=== PATIENT | female | born 1985 | race African-American/Black ===

== ENCOUNTER 2019-05-06 22:57 | Emergency (ER) | payer OTHER ==
[2019-05-06 23:06] VITALS: TEMP 98.6; BMI 29.9
--- NOTE | 2019-05-07 00:16 | PDOC ---
History of Present Illness - General Chief Complaint: Pain Stated Complaint: PELVIC PAIN Time Seen by Provider: 05/07/19 00:16 History Source: Patient Exam Limitations: No Limitations - History of Present Illness Initial Comments: 05/07/19 00:16 HPI: 33yo F PMH PCOS presenting with lower abdominal pain and questionably positive home test. Patient endorses mild nausea and vomiting in the mornings, none at present, normal food and water intake throughout the afternoon and evening. Reports her lower abdominal pain "uterine pain" is similar to pains she normal has from her PCOS, and is accompanied by breast tenderness. She reports a miscarriage January 26, 2019 (@3 months) and no menstrual periods since that time. Denies history of fibroids or polyps. Several miscarriages / SABs in the past. No abnormal PAP smears, currently between AUDIO RECORDING ENGINEER providers. Denies fevers, chills, nausea, vomiting, diarrhea, numbness, tenderness, weakness, bloody or dark stools, dysuria, loss of appetite, prior abdominal surgeries. All: NKDA Meds: Per chart PMH: As above PSH: Denies SHx: Denies toxic habits Past History - Travel Traveled outside of the country in the last 30 days: No Close contact w/someone who was outside of country & ill: No - Past Medical History Allergies/Adverse Reactions: Allergies Allergy/AdvReac Type Severity Reaction Status Date / Time No Known Allergies Allergy Verified 05/06/19 23:06 Home Medications: Ambulatory Orders Ondansetron [Zofran Odt -] 4 mg SL TID #21 od.tablet 05/15/14 COPD: No Disorders: Yes (pcos) - Reproductive History Cervical CA: No Dysfunctional Uterine Bleeding: No Ectopic : No Endometrial CA: No Polycystic Ovaries: Yes - Psycho Social/Smoking Cessation Hx Smoking Status: No Smoking History: Never smoked Have you smoked in the past 12 months: No Number of Cigarettes Smoked Daily: 0 Information on smoking cessation initiated: No Hx Alcohol Use: No Drug/Substance Use Hx: No Review of Systems - Review of Systems Able to Perform ROS?: Yes Is the patient limited Slovak proficient: Yes Constitutional: No: Chills, Diaphoresis, Fever HEENTM: No: Nose Congestion, Throat Pain Respiratory: No: Cough, Shortness of Breath Cardiac (ROS): No: Chest Pain, Edema, Irregular Heart Rate, Lightheadedness, Palpitations, Syncope, Chest Tightness ABD/GI: Yes: See HPI, Nausea, Vomiting. No: Constipated, Diarrhea : No: Burning, Dysuria, Frequency Musculoskeletal: No: Muscle Pain, Muscle Weakness, Neck Pain Integumentary: No: Bruising, Pruritus, Rash Neurological: No: Headache, Numbness, Tingling, Weakness Psychiatric: No: Stressors, Change in Appetite Endocrine: No: Increased Thirst, Increased Urine Hematologic/Lymphatic: No: Anemia, Blood Clots, Easy Bleeding All Other Systems: Reviewed and Negative *Physical Exam - Vital Signs Last Vital Signs Temp Pulse Resp BP Pulse Ox 98.6 F 78 17 129/76 100 05/06/19 23:04 05/06/19 23:04 05/06/19 23:04 05/06/19 23:04 05/06/19 23:04 - Physical Exam 05/07/19 02:44 Vitals reviewed, AFVSS GEN: Well appearing, appears stated age, NAD, comfortable. AAOx3. HEENT: NCAT, EOMI, PERRL. Sclera anicteric, noninjected. No facial asymmetry. Moist mucous membranes. Normal voice. Trachea midline. CV: RRR, S1/S2, no murmurs / rubs / gallops appreciated. LUNG: CTAB, normal work of breathing. No wheezes, rales, rhonchi. No cough. Speaking full sentences. GI: Soft, NTND, +BS, no guarding, no rebound. No masses. Neg CVAT b/l. EXTREMITIES: 2+ distal pulses. No LE edema. No obvious deformities of all extremities. SKIN: Warm, dry, no rashes appreciated, non-jaundiced. PSYCH: Normal mood and affect. Cooperative and appropriate. NEURO: CN grossly intact. Moving all extremities well. Normal strength and sensation grossly. SSE: Normal external genitalia, normal rugae, physiologic white discharge, no blood, normal cervix with closed os BME: Non-tender cervix, no adnexal fullness or tenderness ED Treatment Course - LABORATORY CBC & Chemistry Diagram: 05/07/19 03:02 05/07/19 03:01 Medical Decision Making - Medical Decision Making 05/07/19 01:00 33yo F PMH PCOS presenting with lower abdominal pain and questionably positive home test. History notable for PCOS, subacute abdominal discomfort. Exam notable for stable vitals, non-tender abdomen, normal pelvic exam. DDX: , ectopic, torsion, appendicitis, UTI, PID, fibroids. - TVUS - UPreg, UA, UCx 05/07/19 01:44 - Positive , IUP on US on my read, official pending - CBC, CMP, Beta Quant 05/07/19 02:41 - Official US read with small subchorionic bleed - T&S added 05/07/19 03:04 - Labs drawn, pending - Patient is pain free, hungry, asking to leave - Reports her blood type is O Positive - Cell phone number given for call back pending labs [phone] Discharge - Discharge Information Problems reviewed: Yes Clinical Impression/Diagnosis: Qualifiers: Weeks of gestation: less than 8 weeks Qualified Code(s): Z3A.01 - Less than 8 weeks gestation of Subchorionic hematoma in first trimester Qualifiers: Fetus number: single or unspecified fetus Qualified Code(s): O41.8X10 - Other specified disorders of amniotic fluid and membranes, first trimester, not applicable or unspecified Condition: Improved Disposition: HOME - Admission No - Follow up/Referral Referrals: Sonia Huffman MD [Non Staff, Medical] - Citlalli Whipple MD [Non Staff, Medical] - Olimpia Spaulding MD [Staff Physician] - - Patient Discharge Instructions Patient Printed Discharge Instructions: DI for Abdominal Pain -- Early Additional Instructions: You were seen and evaluated for abdominal pain and . You were found to be 7 weeks . Please follow up with OBGYN regarding your care as soon as possible. A referral has been provided. Return to the ED for any new or concerning symptoms. - Post Discharge Activity
--- NOTE | 2019-05-07 00:17 | PDOC ---
Attending Attestation - Resident Resident Name: Neymar Sepulveda - ED Attending Attestation I have performed the following: I have examined & evaluated the patient, The case was reviewed & discussed with the resident, I agree w/resident's findings & plan - HPI HPI: 05/07/19 03:25 see resident hpi - Physicial Exam PE: 05/07/19 03:25 see resident exam - Medical Decision Making 05/07/19 03:25 33-year-old female with intermittent pelvic cramping and questionable Pelvic ultrasound shows an approximate 7-week live IUP with heart rate in the 150s Patient is feeling much better, she is pain-free and hungry and would like to go home She did allow blood draw but prefers to go home prior to results, patient left a cell phone number to be contacted should there be any concerning results She will follow-up outpatient with her CARE MANAGER as well
[2019-05-07 01:04] LABS: HCG,QUALITATIVE URINE Positive; PH,URINE 5.5 (5.0-8.0); URINE APPEARANCE CLEAR; URINE BILIRUBIN NEGATIVE (NEGATIVE); URINE COLOR YELLOW; URINE GLUCOSE (UA) NEGATIVE (NEGATIVE); URINE KETONE TRACE (NEGATIVE); URINE LEUK ESTERASE NEGATIVE (NEGATIVE); URINE NITRITE NEGATIVE (NEGATIVE); URINE PROTEIN NEGATIVE (NEGATIVE); URINE UROBILINOGEN 0.2 mg/dL (0.2-1.0)
[2019-05-07 03:13] LABS: BASO % 0.3 % (0-2.0); EOS % 0.5 % (0-4.5); HEMATOCRIT 34.8 % (32.4-45.2); HEMOGLOBIN 11.3 GM/dL (10.7-15.3); LYMPH % 20.3 % (8-40); MCHC 32.4 g/dl (32.0-36.0); MEAN CELL VOLUME 80.2 fl (80-96); MEAN PLT VOLUME 7.9 fl (7.5-11.1); MONO % 5.5 % (3.8-10.2); NEUT % 73.4 % (42.8-82.8); PLATELET COUNT 275 K/MM3 (134-434); RBC 4.34 M/mm3 (3.60-5.2); RDW 14.8 % (11.6-15.6); WHITE BLOOD COUNT 11.4 K/mm3 (4.0-10.0)
[2019-05-07 04:51] VITALS: BP 118/72; PULSE 70
[2019-05-07 04:54] LABS: ALBUMIN 3.7 g/dl (3.4-5.0); BILIRUBIN,TOTAL 0.1 mg/dL (0.2-1); BLOOD UREA NITROGEN 10.3 mg/dL (7-18); CALCIUM 8.7 mg/dL (8.5-10.1); CREATININE 0.6 mg/dL (0.55-1.3); POTASSIUM 3.8 mmol/L (3.5-5.1); TOT PROT 7.4 g/dl (6.4-8.2)
== END 2019-05-07 03:10 | disposition home or self-care (01) ==
LOC: JER 22:57
DX: O41.8X10 Other specified disorders of amniotic fluid and membranes, first trimester, not applicable or unspecified (principal); Z3A.01 Less than 8 weeks gestation of pregnancy; E28.2 Polycystic ovarian syndrome
CPT/HCPCS: 36415; 76830-TC; 80053; 81003; 84702; 84703; 85025; 86850; 86900; 86901; 87086; 99284-25

== ENCOUNTER 2019-05-24 21:37 | Emergency (ER) | payer OTHER ==
[2019-05-24] MEDS ORDERED: SODIUM CHLORIDE 0.9% 500 ML INFUS.BAG IV ONE (22:42)
[2019-05-24 22:45] VITALS: BP 140/86; PULSE 81; TEMP 98.8; BMI 31.4
[2019-05-24] MEDS ORDERED: ACETAMINOPHEN 1000 MG/100 ML VIAL (NON FORMULARY) IVPB ONE (22:57)
[2019-05-24 23:08] LABS: URINE APPEARANCE CLEAR; URINE BILIRUBIN NEGATIVE (NEGATIVE); URINE COLOR YELLOW; URINE GLUCOSE (UA) NEGATIVE (NEGATIVE); URINE KETONE 3+ (NEGATIVE); URINE LEUK ESTERASE NEGATIVE (NEGATIVE); URINE NITRITE NEGATIVE (NEGATIVE); URINE PROTEIN NEGATIVE (NEGATIVE); URINE UROBILINOGEN 0.2 mg/dL (0.2-1.0)
[2019-05-24] MEDS ORDERED: LACTATED RINGERS SOLUTION 1000 ML INFUS.BAG IV ONE (23:10)
[2019-05-24] MEDS ORDERED: ACETAMINOPHEN INJECTION 100 ML IVPB ONE (23:11)
[2019-05-25] MEDS ORDERED: ONDANSETRON *ODT* 4 MG TABLET SL ONE (01:04)
[2019-05-25] MEDS ORDERED: ONDANSETRON *ODT* 4 MG TABLET ONE (01:05)
--- NOTE | 2019-05-25 01:10 | PDOC ---
Documentation entered by Emelia North SCRIBE, acting as scribe for Katarzyna Muse MD. Katarzyna Muse MD: This documentation has been prepared by the Can frazier Nirvannie, SCRIBE, under my direction and personally reviewed by me in its entirety. I confirm that the documentation accurately reflects all work, treatment, procedures, and medical decision making performed by me. History of Present Illness - General Chief Complaint: Nausea/Vomiting Stated Complaint: VOMITING/WEAKNESS/HEADACHE Time Seen by Provider: 05/24/19 22:43 History Source: Patient Exam Limitations: No Limitations - History of Present Illness Initial Comments: 05/24/19 23:09 The patient is a 33 year old 19 weeks female A4, with a significant past medical history of PCOS and 3 recent ER visits for hyperemesis, who presents to the emergency department with persistent nausea with bilious, nonbloody emesis, lightheadedness, and headache. As per patient, she has been unable to hold down PO intake thus she called her STENOTYPE MACHINE OPERATOR who advised her to report to the ED for IV hydration. She denies any fevers, chills, cough, chest pain, or shortness of breath. She denies any recent sick contacts. Allergies: NKDA STENOTYPE MACHINE OPERATOR: Dr. Spaulding Past History - Past Medical History Allergies/Adverse Reactions: Allergies Allergy/AdvReac Type Severity Reaction Status Date / Time No Known Allergies Allergy Verified 05/24/19 22:45 Home Medications: Ambulatory Orders Ondansetron [Zofran Odt -] 4 mg SL TID #21 od.tablet 05/15/14 Ondansetron HCl [Zofran] 4 mg PO TID PRN #30 tablet 05/15/19 Doxylamine Succinate/Vit B6 [Dicleginancy Dr 10-10 mg Tablet] 1 each PO ASDIR PRN #20 tablet. 05/19/19 Nitrofurantoin Macrocrystal [Nitrofurantoin] 100 mg PO QID 5 Days #20 capsule 05/19/19 Metoclopramide HCl [Reglan -] 10 mg PO TID #30 tablet 05/24/19 COPD: No Disorders: Yes (pcos) - Reproductive History Cervical CA: No Dysfunctional Uterine Bleeding: No Ectopic : No Endometrial CA: No Polycystic Ovaries: Yes - Immunization History Immunization Up to Date: Yes - Psycho Social/Smoking Cessation Hx Smoking Status: No Smoking History: Never smoked Have you smoked in the past 12 months: No Number of Cigarettes Smoked Daily: 0 Information on smoking cessation initiated: No Hx Alcohol Use: No Drug/Substance Use Hx: No Review of Systems - Review of Systems Able to Perform ROS?: Yes Comments:: 05/24/19 23:09 GENERAL/CONSTITUTIONAL: No fever or chills. No weakness. HEAD, EYES, EARS, NOSE AND THROAT: No change in vision. No ear pain or discharge. No sore throat. CARDIOVASCULAR: No chest pain or shortness of breath. RESPIRATORY: No cough, wheezing, or hemoptysis. GASTROINTESTINAL:+nausea, +vomiting. No diarrhea or constipation. GENITOURINARY: No dysuria, frequency, or change in urination. MUSCULOSKELETAL: No joint or muscle swelling or pain. No neck or back pain. SKIN: No rash NEUROLOGIC: +headache. +lightheaded. No vertigo, loss of consciousness, or change in strength/sensation. ENDOCRINE: No increased thirst. No abnormal weight change. HEMATOLOGIC/LYMPHATIC: No anemia, easy bleeding, or history of blood clots. ALLERGIC/IMMUNOLOGIC: No hives or skin allergy. All Other Systems: Reviewed and Negative *Physical Exam - Vital Signs Last Vital Signs Temp Pulse Resp BP Pulse Ox 98.8 F 81 16 140/86 99 05/24/19 22:42 05/24/19 22:42 05/24/19 22:42 05/24/19 22:42 05/24/19 22:42 - Physical Exam 05/24/19 23:09 GENERAL: Awake, alert, and fully oriented, in no acute distress HEAD: No signs of trauma NECK: Normal ROM, supple, no lymphadenopathy, JVD, or masses LUNGS: Breath sounds equal, clear to auscultation bilaterally. No wheezes, and no crackles HEART: +Tachycardic. Regular rhythm, no murmurs, rubs or gallops ABDOMEN: +Gravid. Soft, nontender, normoactive bowel sounds. No guarding, no rebound. No masses EXTREMITIES: Normal range of motion, no edema. No clubbing or cyanosis. No cords, erythema, or tenderness NEUROLOGICAL: Cranial nerves II through XII grossly intact. Normal speech. Ambulating with a steady gait. SKIN: Warm, Dry, normal turgor, no rashes or lesions noted. Medical Decision Making - Medical Decision Making 05/24/19 23:25 Pt tells me that she is 11 week; however, she is 19 weeks . She has had hyperemesis the past week and been to the ER 2x. Today she has N/V cant keep anything down. Pt will receive hydration with 2L and ofirmev and she will be sent home with reglan. Discharge - Discharge Information Problems reviewed: Yes Clinical Impression/Diagnosis: Hyperemesis Condition: Improved Disposition: HOME - Admission No - Additional Discharge Information Prescriptions: Metoclopramide HCl [Reglan -] 10 mg PO TID #30 tablet - Follow up/Referral - Patient Discharge Instructions Patient Printed Discharge Instructions: DI for Hyperemesis Gravidarum - Post Discharge Activity
== END 2019-05-25 01:15 | disposition home or self-care (01) ==
LOC: JER 21:37
DX: O21.0 Mild hyperemesis gravidarum (principal); Z3A.19 19 weeks gestation of pregnancy
CPT/HCPCS: 81003; 99283-25; J0131; Q0162

== ENCOUNTER 2019-10-11 11:44 | Emergency (ER) | payer OTHER ==
[2019-10-11 11:51] VITALS: BMI 29.9
[2019-10-11] MEDS ORDERED: SODIUM CHLORIDE 0.9% 500 ML INFUS.BAG IV ONE (13:15)
[2019-10-11] MEDS ORDERED: ONDANSETRON 4 MG/2 ML VIAL IVPUSH ONE (13:15)
[2019-10-11] MEDS ORDERED: ACETAMINOPHEN 1000 MG/100 ML VIAL (NON FORMULARY) IVPB ONE (13:15)
[2019-10-11] MEDS ORDERED: ACETAMINOPHEN INJECTION 100 ML IVPB ONE (13:21)
[2019-10-11 14:08] LABS: BASO % 0.2 % (0-2.0); EOS % 0.4 % (0-4.5); HEMOGLOBIN 9.4 GM/dL (10.7-15.3); LYMPH % 13.2 % (8-40); MCH 25.9 pg (25.7-33.7); MCHC 32.4 g/dl (32.0-36.0); MEAN PLT VOLUME 8.1 fl (7.5-11.1); MONO % 5.8 % (3.8-10.2); NEUT % 80.4 % (42.8-82.8); PLATELET COUNT 285 K/MM3 (134-434); RBC 3.63 M/mm3 (3.60-5.2); RDW 14.3 % (11.6-15.6); WHITE BLOOD COUNT 7.4 K/mm3 (4.0-10.0)
--- NOTE | 2019-10-11 14:23 | PDOC ---
History of Present Illness - General Chief Complaint: Lightheaded Stated Complaint: NAUSEA/VOMITING Time Seen by Provider: 10/11/19 11:59 History Source: Patient Past History - Medical History Allergies/Adverse Reactions: Allergies Allergy/AdvReac Type Severity Reaction Status Date / Time No Known Allergies Allergy Verified 10/11/19 11:51 Home Medications: Ambulatory Orders No122/Iron/Folic Acid [ Multi Tablet] 1 each PO DAILY 10/11/19 COPD: No Disorders: Yes (pcos) - Reproductive History Is Patient Now?: Yes (#): 2 Para: 1 Cervical CA: No Dysfunctional Uterine Bleeding: No Ectopic : No Endometrial CA: No Polycystic Ovaries: Yes Therapeutic (s) & number: No Spontaneous : 0 - Immunization History Immunization Up to Date: Yes - Psycho-Social/Smoking History Smoking Status: No Smoking History: Never smoked Have you smoked in the past 12 months: No Number of Cigarettes Smoked Daily: 0 *Physical Exam - Vital Signs Last Vital Signs Temp Pulse Resp BP Pulse Ox 98 F 113 H 18 113/66 100 10/11/19 11:47 10/11/19 11:47 10/11/19 11:47 10/11/19 11:47 10/11/19 11:47 ED Treatment Course - LABORATORY CBC & Chemistry Diagram: 10/11/19 13:39 10/11/19 13:55 - ADDITIONAL ORDERS Additional order review: Laboratory Results 10/11/19 13:27 POC Glucometer 67 10/11/19 10/11/19 13:39 13:27 RBC 3.63 MCV 80.0 MCHC 32.4 RDW 14.3 MPV 8.1 Neutrophils % 80.4 Lymphocytes % 13.2 Monocytes % 5.8 Eosinophils % 0.4 Basophils % 0.2 POC Glucometer 67 - Medications Given in the ED: ED Medications Discontinued Medications Generic Name Dose Route Start Last Admin Trade Name Freq PRN Reason Stop Dose Admin Acetaminophen 1,000 mg 10/11/19 13:15 10/11/19 13:48 Ofirmev Injection - IVPB 10/11/19 13:16 1,000 mg ONCE ONE Administration Ondansetron HCl 4 mg 10/11/19 13:15 10/11/19 13:48 Zofran Injection IVPUSH 10/11/19 13:16 4 mg ONCE ONE Administration Sodium Chloride 1,000 ml 10/11/19 13:15 10/11/19 13:48 Normal Saline - IV 10/11/19 13:16 1,000 ml ONCE ONE Administration Discharge - Discharge Information Problems reviewed: Yes Clinical Impression/Diagnosis: Hyperemesis gravidarum Condition: Stable - Admission No - Follow up/Referral - Patient Discharge Instructions - Post Discharge Activity
[2019-10-11 14:49] LABS: ALBUMIN 2.9 g/dl (3.4-5.0); BILIRUBIN,TOTAL 0.2 mg/dL (0.2-1); BLOOD UREA NITROGEN 10.4 mg/dL (7-18); CALCIUM 9.1 mg/dL (8.5-10.1); CREATININE 0.6 mg/dL (0.55-1.3); POTASSIUM 4.2 mmol/L (3.5-5.1); TOT PROT 6.6 g/dl (6.4-8.2)
[2019-10-11] MEDS ORDERED: SODIUM CHLORIDE 0.9% 1000 ML INFUS.BAG IV ONE (15:34)
--- NOTE | 2019-10-11 16:07 | PDOC ---
Documentation entered by Amelie Miranda SCRIBE, acting as scribe for Deon Franklin MD. Deon Franklin MD: This documentation has been prepared by the alhajiibRuben mae Ana, SCRIBE, under my direction and personally reviewed by me in its entirety. I confirm that the documentation accurately reflects all work, treatment, procedures, and medical decision making performed by me. Attending Attestation - Resident Resident Name: ConstantinoRinku - ED Attending Attestation I have performed the following: I have examined & evaluated the patient, The case was reviewed & discussed with the resident, I agree w/resident's findings & plan, Exceptions are as noted - HPI HPI: 10/11/19 12:04 Patient is a 33 year old female 29 weeks presents to the ED with 2 episodes of nausea vomiting yesterday Now with slight dizziness lightheadedness while ambulating ROS: A complete review of 10 out of 10 review of systems is taken and is negative apart from what is previously mentioned below and in the HPI. - Physicial Exam PE: 10/11/19 16:05 Vitals: Triage Vital signs reviewed General Appearance: No acute distress, well nourished well developed, Head: Atraumatic, Cardiac: Regular rate and rhythym, no murmurs, no rubs, no gallops, Lungs: Clear to auscultation bilateral, good air movement bilaterally, Abdomen: Soft, non distended, normal bowel sounds, non tender to palpation Extremities: Full range of motion to all extremities, no cyanosis, clubbing, or edema Skin: Warm and dry, no rashes or lesions, no rash, no petechiae Neuro: AOX3; cranial Nerves 2-12 grossly intact, strength intact to all extremities, sensation intact to all extremities, Psych: Normal mood, normal affect - Medical Decision Making 10/11/19 16:06 Well-appearing no apparent distress EKG demonstrates normal sinus rhythm no ST elevations or T wave inversions no evidence of WPW, Brugada, prolonged QT Laboratory analysis within normal limits patient feels better is now tolerating fluids by mouth History examination most consistent with slight hyperemesis and dehydration complicated by lightheadedness Low suspicion for cardiac near-syncope Findings, need for follow-up and strict return instructions discussed with patient. Discharge - Discharge Information Problems reviewed: Yes Clinical Impression/Diagnosis: Hyperemesis gravidarum Condition: Stable - Follow up/Referral - Patient Discharge Instructions - Post Discharge Activity
[2019-10-11 16:56] LABS: PH,URINE 6.5 (5.0-8.0); URINE APPEARANCE CLEAR; URINE BILIRUBIN NEGATIVE (NEGATIVE); URINE COLOR YELLOW; URINE GLUCOSE (UA) NEGATIVE (NEGATIVE); URINE KETONE 1+ (NEGATIVE); URINE LEUK ESTERASE NEGATIVE (NEGATIVE); URINE NITRITE NEGATIVE (NEGATIVE); URINE PROTEIN NEGATIVE (NEGATIVE)
[2019-10-11 17:07] VITALS: BP 109/67; PULSE 96; TEMP 98.3
--- NOTE | 2019-10-11 17:32 | PD.OB.PROG ---
Past Medical History - Primary Care Physician PCP:: Chicho Andrew Documenting Provider Type: Laborist - Admission Chief Complaint: Nausea, dehydration. History of Present Illness: 2nd , 29.4 wks. Enters via ED. N&V, dehydration, GERD, - Nursing Documentation Maternal Triage Index: Maternal Triage Index ( Priority 2, Urgent MFTI) Nursing Documentation Reviewed: Yes - Past Medical History CONSERVATION COORDINATOR: Denies/None Cardio/Vascular: Denies/None Pulmonary: Denies/None Gastrointestinal: Denies/None Hepatobiliary: Denies/None Renal/: Denies/None ...: 6 ...Para: 1 ...Term: 1 ...: 0 ...Spon : 2 ...Induced : 2 ...Living Children: 1 ...EDC by Kelli: 12/23/19 Heme/Onc: Denies/None Infectious Disease: Denies/None Psych: Denies/None Musculoskeletal: Denies/None Rheumatology: Denies/None ENT: Denies/None Endocrine: Denies/None Dermatology: Denies/None - Past Surgical History Past Surgical History: Yes: None - Smoking History Smoking history: Never smoked Have you smoked in the past 12 months: No Aproximately how many cigarettes per day: 0 - Alcohol/Substance Use Hx Alcohol Use: No Review of Systems - Review of Systems Constitutional: reports: No Symptoms Eyes: reports: No Symptoms HENT: reports: No Symptoms Neck: reports: No Symptoms Cardiovascular: reports: No Symptoms Respiratory: reports: No Symptoms Gastrointestinal: reports: No Symptoms Genitourinary: reports: No Symptoms Breasts: reports: No Symptoms Reported Musculoskeletal: reports: No Symptoms Integumentary: reports: No Symptoms Neurological: reports: No Symptoms Endocrine: reports: No Symptoms Hematology/Lymphatic: reports: No Symptoms Psychiatric: reports: No Symptoms Physical Exam - Obstetrical Vital Signs: Vital Signs Temperature 98.3 F 10/11/19 16:55 Pulse Rate 96 H 10/11/19 16:55 Respiratory Rate 18 10/11/19 16:55 Blood Pressure 109/67 10/11/19 16:55 O2 Sat by Pulse Oximetry (%) 99 10/11/19 16:04 Constitutional: Yes: Well Nourished, No Distress, Calm Eyes: Yes: WNL, Conjunctiva Clear, EOM Intact HENT: Yes: WNL, Atraumatic, Normocephalic Neck: Yes: WNL, Supple, Trachea Midline Cardiovascular: Yes: WNL, Regular Rate and Rhythm Lungs: Clear to auscultation Breast(s): Yes: WNL - Abdominal Exam/OB Fundal Height: 30 Number of Fetuses: Single Contractions: No Category: I Accelerations: Uniform Decelerations: None - Vaginal Exam/OB Vaginal Exam Deferred: No Dilatation (cm): 0 Effacement (%): 0 Amniotic Membrane Status: Intact Station: -4 - Labs Lab Results: CBC, BMP 10/11/19 13:39 10/11/19 13:55 Problem List - Problems (1) with 29 completed weeks gestation Code(s): Z3A.29 - 29 WEEKS GESTATION OF (2) GERD (gastroesophageal reflux disease) Code(s): K21.9 - GASTRO-ESOPHAGEAL REFLUX DISEASE WITHOUT ESOPHAGITIS (3) Hyperemesis Code(s): R11.10 - VOMITING, UNSPECIFIED Assessment/Plan Evaluation neg. Re-hydrated. Will try Pepsid. Feeling better. Discharge.
--- NOTE | 2019-10-11 17:46 | EKG ---
Test Reason : Blood Pressure : / mmHG Vent. Rate : 090 BPM Atrial Rate : 090 BPM P-R Int : 148 ms QRS Dur : 068 ms QT Int : 336 ms P-R-T Axes : 058 030 015 degrees QTc Int : 411 ms NORMAL SINUS RHYTHM NORMAL ECG NO PREVIOUS ECGS AVAILABLE Confirmed by MD JEMIMA, LOREN ([id number]) on 10/11/2019 5:46:17 PM Referred By: Confirmed By:LOREN ONOFRE MD
== END 2019-10-11 17:41 | disposition home or self-care (01) ==
LOC: JER 11:44
PROC: 3E0333Z Introduction of Anti-inflammatory into Peripheral Vein, Percutaneous Approach (ICD-10-PCS; principal; 2019-10-11)
PROC: 3E033GC Introduction of Other Therapeutic Substance into Peripheral Vein, Percutaneous Approach (ICD-10-PCS; 2019-10-11)
DX: O21.0 Mild hyperemesis gravidarum (principal)
CPT/HCPCS: 36415; 80053; 81003; 82962; 85025; 87086; 93005; 93010; 99284-25; J0131

== ENCOUNTER 2020-04-17 16:06 | Emergency (ER) | payer OTHER ==
[2020-04-17 16:24] VITALS: BP 120/80; PULSE 89; TEMP 98.5
[2020-04-17] MEDS ORDERED: KETOROLAC TROMETHAMINE 30 MG/1 ML VIAL ONE (17:06)
[2020-04-17] MEDS ORDERED: KETOROLAC TROMETHAMINE 60 MG/2 ML VIAL IM ONE (17:09)
== END 2020-04-17 18:19 | disposition home or self-care (01) ==
LOC: JER 16:06
PROC: 3E0233Z Introduction of Anti-inflammatory into Muscle, Percutaneous Approach (ICD-10-PCS; principal; 2020-04-17)
DX: R51.9 Headache, unspecified (principal); Z11.52 Encounter for screening for COVID-19
CPT/HCPCS: 99284-25; C9803; U0003

== ENCOUNTER 2020-10-01 13:15 | Emergency (ER) | payer OTHER ==
[2020-10-01 13:25] VITALS: BP 98/71; PULSE 91; BMI 32.4
[2020-10-01] MEDS ORDERED: ACETAMINOPHEN 500 MG TABLET (FP) PO ONE (13:50)
[2020-10-01] MEDS ORDERED: ACETAMINOPHEN 500 MG TABLET (FP) ONE (13:54)
[2020-10-01 14:20] LABS: BASO % 0.3 % (0-2.0); EOS % 0.4 % (0-4.5); HEMOGLOBIN 12.1 GM/dL (10.7-15.3); LYMPH % 27.4 % (8-40); MCH 25.7 pg (25.7-33.7); MCHC 32.8 g/dl (32.0-36.0); MEAN CELL VOLUME 78.4 fl (80-96); MONO % 6.5 % (3.8-10.2); NEUT % 65.4 % (42.8-82.8); PLATELET COUNT 299 10^3/uL (134-434); RBC 4.72 M/mm3 (3.60-5.2); WHITE BLOOD COUNT 5.8 K/mm3 (4.0-10.0)
[2020-10-01 14:24] LABS: EPI CELLS >36 /uL (0-25.1); HYALINE CASTS 1 /uL (0-3.1); URINE APPEARANCE CLOUDY; URINE BACTERIA 1203 /uL (0-1359); URINE BILIRUBIN NEGATIVE (NEGATIVE); URINE COLOR YELLOW; URINE GLUCOSE (UA) NEGATIVE (NEGATIVE); URINE KETONE NEGATIVE (NEGATIVE); URINE LEUK ESTERASE NEGATIVE (NEGATIVE); URINE NITRITE NEGATIVE (NEGATIVE); URINE PROTEIN TRACE (NEGATIVE); URINE RBC 12 /uL (0-23.9); URINE UROBILINOGEN 0.2 mg/dL (0.2-1.0); URINE WBC 43 /uL (0-25.8)
[2020-10-01 14:42] LABS: CHLORIDE 106 mmol/L (98-107); SODIUM 139 mmol/L (136-145)
[2020-10-01 14:44] LABS: ALBUMIN 4.2 g/dl (3.4-5.0); ANION GAP 5 MMOL/L (8-16); BLOOD UREA NITROGEN 15.6 mg/dL (7-18); CALCIUM 9.1 mg/dL (8.5-10.1); CO2 29 mmol/L (21-32); GLUCOSE,RANDOM 81 mg/dL (74-106)
[2020-10-01 14:48] LABS: CREATININE 0.9 mg/dL (0.55-1.3)
[2020-10-01 14:50] LABS: BILIRUBIN,TOTAL 0.3 mg/dL (0.2-1); TOT PROT 8.2 g/dl (6.4-8.2)
[2020-10-01 14:51] LABS: ALK PHOS 58 U/L (45-117)
[2020-10-01 14:54] LABS: SGOT/AST 11 U/L (15-37); SGPT/ALT 19 U/L (13-61)
== END 2020-10-01 15:36 | disposition home or self-care (01) ==
LOC: JER 13:15
DX: M25.511 Pain in right shoulder (principal); N93.9 Abnormal uterine and vaginal bleeding, unspecified
CPT/HCPCS: 36415; 80053; 81003; 84702; 85025; 86850; 86900; 86901; 87077; 87086; 99283-25

== ENCOUNTER 2021-03-02 22:35 | Emergency (ER) | payer OTHER ==
[2021-03-02 22:41] VITALS: BP 139/87; PULSE 102; TEMP 98.3; BMI 31.6
[2021-03-02] MEDS ORDERED: DIPHTH,PERTUSS(ACELL),TET 0.5 ML DISP.SYRIN IM ONE ×2 (22:58→23:06)
== END 2021-03-02 23:10 | disposition home or self-care (01) ==
LOC: JER 22:35
PROC: 3E0234Z Introduction of Serum, Toxoid and Vaccine into Muscle, Percutaneous Approach (ICD-10-PCS; principal; 2021-03-02)
DX: S61.210A Laceration without foreign body of right index finger without damage to nail, initial encounter (principal); W26.8XXA Contact with other sharp object(s), not elsewhere classified, initial encounter
CPT/HCPCS: 90471; 90715; 99282-25